=== PATIENT | female | born 1940 | race Caucasian/White ===

== ENCOUNTER 2017-06-15 13:24 | Emergency (ER) | payer OTHER ==
[~2017-06-15] VITALS: Ht 152.4 cm; Wt 56.0 kg
[2017-06-15] VITALS (7 sets, daily range): BP systolic 64–105; BP diastolic 40–74; PULSE 74–90; RESP 16–28; TEMP 97.9; O2SAT 97–99
[2017-06-15] MEDS ORDERED: SODIUM CHLOR 0.9% 1000 ML INJ 1,000 ML IV ONE (13:51)
[2017-06-15] MEDS ORDERED: SODIUM CHLORIDE 0.9% FLUSH 10 ML FLUSH IVF PRN (14:00)
--- NOTE | 2017-06-15 14:01 | PD ---
HPI Chief Complaint: Syncope/Near-Syncope Time Seen by Provider: 13:51 Travel History International Travel<30 days: No Contact w/Intl Traveler<30days: No Traveled to known affect area: No History of Present Illness HPI Patient presents after a syncopal episode today. Unsure of mechanism a fall but complains of left ankle pain. Denies any head trauma. States she has had flulike symptoms for the last 4 days but is gradually been getting better. Admits to a fever initially but thinks she is currently afebrile. Reports good fluid intake. Taking fluids well. Denies any chest pain shortness of breath urinary or bowel symptoms. PFSH Social History Tobacco Use: No Allergies-Medications (Allergen,Severity, Reaction): Coded Allergies: Penicillins (Verified Adverse Reaction, Intermediate, excessive crying, ) Sulfa (Sulfonamide Antibiotics) (Verified Adverse Reaction, Mild, excessive crying, 06/15/17) Reported Meds & Prescriptions Reported Meds & Active Scripts Active Reported Claritin (Loratadine) 10 Mg Cap 10 Mg PO DAILY PRN Flonase Nasal [place] (Fluticasone Nasal [place]) Unknown Strength [place] Unknown Dose EACH NARE BID PRN Review of Systems General / Constitutional: No: Fever Eyes: No: Visual changes HENT: No: Headaches Cardiovascular: No: Chest Pain or Discomfort Respiratory: No: Shortness of Breath Gastrointestinal: No: Abdominal Pain Genitourinary: No: Dysuria Musculoskeletal: No: Pain Skin: No Rash Neurologic: No: Weakness Psychiatric: No: Depression Endocrine: No: Polydipsia Hematologic/Lymphatic: No: Easy Bruising Physical Exam Narrative GENERAL: Well-nourished, well-developed patient. SKIN: Focused skin assessment warm/dry. HEAD: Normocephalic. EYES: No scleral icterus. No injection or drainage. NECK: Supple, trachea midline. No JVD or lymphadenopathy. CARDIOVASCULAR: Regular rate and rhythm without murmurs, gallops, or rubs. RESPIRATORY: Breath sounds equal bilaterally. No accessory muscle use. GASTROINTESTINAL: Abdomen soft, non-tender, nondistended. MUSCULOSKELETAL: No cyanosis, or edema. BACK: Nontender without obvious deformity. No CVA tenderness. Examination left ankle reveals pain on flexion without pain with extension or manipulation, localizes pain over the lateral malleolus without any ecchymosis erythema edema or bony deformity Data Data Last Documented VS Vital Signs Date Time Temp Pulse Resp B/P (MAP) Pulse Ox O2 Delivery O2 Flow Rate FiO2 06/15/17 16:15 88 16 91/54 (66) 97 Room Air 06/15/17 13:33 97.9 Orders Orders Electrocardiogram (06/15/17 13:51) Complete Blood Count With Diff (06/15/17 13:51) Comprehensive Metabolic Panel (06/15/17 13:51) Magnesium (Mg) (06/15/17 13:51) Ckmb (Isoenzyme) Profile (06/15/17 13:51) Troponin I (06/15/17 13:51) Urinalysis - C+S If Indicated (06/15/17 13:51) Chest, Single Ap (06/15/17 13:51) Blood Glucose (06/15/17 13:51) Ecg Monitoring (06/15/17 13:51) Iv Access Insert/Monitor (06/15/17 13:51) Oximetry (06/15/17 13:51) Sodium Chloride 0.9% Flush (Ns Flush) (06/15/17 14:00) Sodium Chlor 0.9% 1000 Ml Inj (Ns 1000 M (06/15/17 13:51) Orthostatic Vital Signs (06/15/17 13:51) Ankle, Limited (Ap&Lat) (06/15/17 ) Potassium Chloride Eff (K-Lyte Cl Eff) (06/15/17 16:15) Splint Or Brace Apply/Monitor (06/15/17 16:42) Labs Laboratory Tests Test 06/15/17 14:30 White Blood Count 6.9 TH/MM3 Red Blood Count 4.85 MIL/MM3 Hemoglobin 14.1 GM/DL Hematocrit 43.5 % Mean Corpuscular Volume 89.8 FL Mean Corpuscular Hemoglobin 29.0 PG Mean Corpuscular Hemoglobin Concent 32.3 % Red Cell Distribution Width 13.3 % Platelet Count 219 TH/MM3 Mean Platelet Volume 9.3 FL Neutrophils (%) (Auto) 72.5 % Lymphocytes (%) (Auto) 10.8 % Monocytes (%) (Auto) 12.5 % Eosinophils (%) (Auto) 0.1 % Basophils (%) (Auto) 4.1 % Neutrophils # (Auto) 4.9 TH/MM3 Lymphocytes # (Auto) 0.8 TH/MM3 Monocytes # (Auto) 0.9 TH/MM3 Eosinophils # (Auto) 0.0 TH/MM3 Basophils # (Auto) 0.3 TH/MM3 CBC Comment DIFF FINAL Differential Comment Blood Urea Nitrogen 18 MG/DL Creatinine 0.78 MG/DL Random Glucose 106 MG/DL Total Protein 6.9 GM/DL Albumin 3.2 GM/DL Calcium Level 8.2 MG/DL Magnesium Level 2.1 MG/DL Alkaline Phosphatase 66 U/L Aspartate Amino Transf (AST/SGOT) 23 U/L Alanine Aminotransferase (ALT/SGPT) 17 U/L Total Bilirubin 0.7 MG/DL Sodium Level 131 MEQ/L Potassium Level 3.1 MEQ/L Chloride Level 94 MEQ/L Carbon Dioxide Level 24.4 MEQ/L Anion Gap 13 MEQ/L Estimat Glomerular Filtration Rate 71 ML/MIN Total Creatine Kinase 89 U/L Troponin I LESS THAN 0.02 NG/ML MDM Medical Decision Making Medical Screen Exam Complete: Yes Emergency Medical Condition: Yes Differential Diagnosis Orthostatic hypotension, syncope, dehydration, fatigue Narrative Course Assessment and plan discussed with patient and son at bedside. EKG revealed new -onset atrial fibrillation. Orthostatics revealed orthostatic hypotension. Cardiac enzymes negative. Chads score of 1. Patient feeling much improved after fluids. Last 72 hours Impressions Chest X-Ray 06/15/17 1351 Signed Impressions: Service Date/Time: Thursday, June 15, 2017 14:41 - CONCLUSION: No acute cardiopulmonary disease identified. Russel Moya MD Ankle X-Ray 06/15/17 0000 Signed Impressions: Service Date/Time: Thursday, June 15, 2017 14:41 - CONCLUSION: No evidence of acute fracture. Russel Moya MD Diagnosis Primary Impression: Atrial fibrillation Qualified Codes: I48.0 - Paroxysmal atrial fibrillation Additional Impressions: Orthostatic hypotension Hyponatremia Hypocalcemia Hypoalbuminemia Hypokalemia Ankle pain, left Qualified Codes: M25.572 - Pain in left ankle and joints of left foot Patient Instructions: General Instructions Additional Instructions: Encouraged fluids for orthostatic hypotension, encouraged anticoagulation with a daily enteric-coated aspirin (CHADs score = 1) for new onset A. fib that is rate controlled, encouraged daily ensure with meals for electrolyte abnormalities. Encouraged use of walker or cane for left ankle pain. Encouraged to follow-up with PCP. Encouraged to return to emergency room with any onset of new symptoms. Med/Other Pt SpecificInfo: No Meds Exist/No RX given Disposition: 01 DISCHARGE HOME Condition: Good Edward Bob MD Jun 15, 2017 14:01
[2017-06-15] MEDS ORDERED: FLUT1SPR5 EACH NARE (14:23)
[2017-06-15] MEDS ORDERED: CLAR10CA3 PO (14:24)
[2017-06-15 14:39] LABS: AUTOMATED NEUTROPHIL # 4.9 TH/MM3 (1.8-7.7); BASOPHIL # 0.3 TH/MM3 (0-0.2); BASOPHIL % 4.1 % (0.0-2.0); EOSINOPHIL % 0.1 % (0.0-4.0); HEMATOCRIT 43.5 % (35.0-46.0); HEMOGLOBIN 14.1 GM/DL (11.6-15.3); LYMPH % 10.8 % (9.0-44.0); LYMPHOCYTE # 0.8 TH/MM3 (1.0-4.8); MEAN CELL VOLUME 89.8 FL (80.0-100.0); MEAN CORPUSCULAR HGB CONC 32.3 % (32.0-36.0); MEAN PLATELET VOLUME 9.3 FL (7.0-11.0); MONO % 12.5 % (0.0-8.0); MONOCYTE # 0.9 TH/MM3 (0-0.9); NEUT % 72.5 % (16.0-70.0); PLATELET COUNT 219 TH/MM3 (150-450); RED BLOOD COUNT 4.85 MIL/MM3 (4.00-5.30); RED CELL DISTRIBUTION WIDTH 13.3 % (11.6-17.2); WHITE BLOOD COUNT 6.9 TH/MM3 (4.0-11.0)
[2017-06-15 14:51] LABS: CHLORIDE 94 MEQ/L (98-107); SODIUM (NA) 131 MEQ/L (136-145)
[2017-06-15 14:54] LABS: ALBUMIN 3.2 GM/DL (3.4-5.0); BICARBONATE 24.4 MEQ/L (21.0-32.0); CALCIUM 8.2 MG/DL (8.5-10.1); GLUCOSE,RANDOM 106 MG/DL (74-106); MAGNESIUM 2.1 MG/DL (1.5-2.5)
[2017-06-15 14:55] LABS: BLOOD UREA NITROGEN 18 MG/DL (7-18)
[2017-06-15 14:58] LABS: ALT (GPT) 17 U/L (10-53); AST (GOT) 23 U/L (15-37); CREATININE 0.78 MG/DL (0.50-1.00); GLOMERULAR FILTRATION RATE 71 ML/MIN (>89)
[2017-06-15 14:59] LABS: TOTAL BILIRUBIN ADULT 0.7 MG/DL (0.2-1.0); TOTAL PROTEIN 6.9 GM/DL (6.4-8.2)
[2017-06-15 15:00] LABS: ALKALINE PHOSPHATASE 66 U/L (45-117)
[2017-06-15 15:03] LABS: TROPONIN I LESS THAN 0.02 NG/ML (0.02-0.05)
--- NOTE | 2017-06-15 15:24 | RADRPT ---
EXAM DATE/TIME: 06/15/2017 14:41 [facility] COMPARISON: No previous studies available for comparison. INDICATIONS : Fall today. Pain in left ankle. MEDICAL HISTORY : None. SURGICAL HISTORY : None. ENCOUNTER: Initial ACUITY: 1 day PAIN SCORE: 7/10 LOCATION: Left ankle. FINDINGS: 2 views of the left ankle. Corticated ossicles adjacent to the medial malleolus suggesting sequela of old trauma. No evidence of acute fracture. Ankle mortise intact. Bone alignment within normal limits . CONCLUSION: No evidence of acute fracture. Russel Moya MD on June 15, 2017 at 15:22 Board Certified Radiologist. This report was verified electronically.
--- NOTE | 2017-06-15 15:27 | RADRPT ---
EXAM DATE/TIME: 06/15/2017 14:41 [facility] COMPARISON: No previous studies available for comparison. INDICATIONS : Fall. Short of breath. MEDICAL HISTORY : None. SURGICAL HISTORY : None. ENCOUNTER: Initial ACUITY: 1 day PAIN SCORE: 0/10 LOCATION: Bilateral chest FINDINGS: Single AP view of the chest. The lungs are clear. Cardiomediastinal silhouette within normal limits. No evidence of pleural effusion or pneumothorax. CONCLUSION: No acute cardiopulmonary disease identified. Russel Moya MD on June 15, 2017 at 15:24 Board Certified Radiologist. This report was verified electronically.
[2017-06-15] MEDS ORDERED: POTASSIUM CHLORIDE 25 MEQ EFFERVESCENT TAB PO ONE (16:15)
--- NOTE | 2017-06-15 16:37 | EKG ---
Date Performed: 06/15/2017 Time Performed: 14:24:36 PTAGE: 76 years EKG: ATRIAL FIBRILLATION ABNORMAL RHYTHM ECG NO PREVIOUS TRACING DOCTOR: Monica Kingston Interpretating Date/Time 06/15/2017 16:35:18
== END 2017-06-15 18:02 | disposition home or self-care (01) ==
LOC: PHED 13:24
DX: I48.91 Unspecified atrial fibrillation (principal); I95.1 Orthostatic hypotension; E87.1 Hypo-osmolality and hyponatremia; E83.51 Hypocalcemia; E88.09 Other disorders of plasma-protein metabolism, not elsewhere classified; E87.6 Hypokalemia; M25.572 Pain in left ankle and joints of left foot; R55 Syncope and collapse; R94.31 Abnormal electrocardiogram [ECG] [EKG]
CPT/HCPCS: 71010; 73600; 80053; 82550; 83735; 84484; 85025; 93005; 96360; 96361; 99285; J7030